=== PATIENT | female | born 1960 | race Caucasian/White ===

== ENCOUNTER 2017-03-24 10:22 | Emergency (ER) | payer OTHER ==
[~2017-03-24] VITALS: Ht 157.5 cm; Wt 85.0 kg
[2017-03-24 10:22] VITALS: Ht 157.5 cm; Wt 85.0 kg
[~2017-03-24 10:22] MED LIST: ALTEPLASE 100 MG INJ ONE; ALTEPLASE 50 MG ONE; AMLO-147 PO; ATROPINE 1 MG/10 ML SYRINGE ONE; CARV6.2579 PO; EPINEPHrine 0.1 MG/ML SYG ONE; METF500T4 PO; NA BICARBONATE 8.4% 50 ML SYG ONE
[2017-03-24] MEDS ORDERED: ASPIRIN 300 MG SUPP PR STA (10:38)
[2017-03-24] MEDS ORDERED: SOD CHLORIDE 0.9% 1,000 ML IV STA (10:38)
[2017-03-24] MEDS ORDERED: HEPARIN 1000 UNITS/ML 10 ML INJ IV STA (10:38)
[2017-03-24] MEDS ORDERED: METF1000 PO (10:41)
[2017-03-24] MEDS ORDERED: DOCU-159 PO (10:42)
[2017-03-24] MEDS ORDERED: ATOR20TA38 PO (10:42)
[2017-03-24] MEDS ORDERED: RANI300T PO (10:43)
[2017-03-24] MEDS ORDERED: METO-407 PO (10:43)
[2017-03-24] MEDS ORDERED: POTA20TA96 PO (10:43)
[2017-03-24] MEDS ORDERED: AMLO5TAB4 PO (10:44)
[2017-03-24] MEDS ORDERED: TRAM-40 PO (10:44)
[2017-03-24] MEDS ORDERED: FAMO20TA18 PO (10:45)
[2017-03-24] MEDS ORDERED: GLIP5TAB13 PO (10:45)
[2017-03-24] MEDS ORDERED: EPINEPHrine 0.1 MG/ML SYG ONE ×5 (10:58→14:44)
[2017-03-24] MEDS ORDERED: EPINEPHRINE 4 MG in D5W 250 ML IV ONE (11:00)
[2017-03-24 11:19] LABS: ABNORMAL IP MESSAGE 1; HEMATOCRIT 37.7 % (37.0-47.0); MEAN CORPUSCULAR HEMOGLOBIN 26.6 pg (29.0-33.0); MEAN CORPUSCULAR HGB CONC 29.2 g/dl (32.0-37.0); MEAN CORPUSCULAR VOLUME 91.1 fl (82.0-101.0); MEAN PLATELET VOLUME 10.2 fl (7.4-10.4); NUCLEATED RED BLOOD CELLS% 0.2 /100WBC (0.0-0.0); PLATELET COUNT 164 10^3/UL (140-415); RED BLOOD COUNT 4.14 10^6/ul (4.20-5.40); RED CELL DISTRIBUTION WIDTH 13.5 % (11.5-14.5); WHITE BLOOD COUNT 14.4 10^3/ul (4.8-10.8)
[2017-03-24 11:25] LABS: POSITIVE DIFF @See below
--- NOTE | 2017-03-24 11:31 | RADRPT ---
PROCEDURE: XR Chest. CLINICAL INDICATION: Dation TECHNIQUE: Anterior chest x-ray. COMPARISON: None. FINDINGS: Endotracheal tube terminates the right mainstem bronchus and should be withdrawn 4 cm for appropriat e position. Nasogastric tube is otherwise. Left-sided central venous catheter terminates at the cavoatrial junction. There is diffusely increased density throughout the left lung suggesting atelectasis. No pleural effusion identified. The heart size is large. Pacer wires overlie the left and right heart border. The cardiomediastinal silhouette is unremarkable. The soft tissues are normal. Osseous structures are unremarkable. IMPRESSION: 1. Right mainstem intubation. 2. Diffuse increased density throughout left lung, likely atelectasis secondary to the right mainst em intubation. Follow-up exam after repositioning is suggested. 3. Satisfactory position of left-sided central venous catheter and nasogastric tube. 4. Cardiomegaly. 5. Median sternotomy wires and central pacer wires from prior CABG. RPTAT: QQ .Jeremy Morales MD, MD Date Time Electronically viewed and signed by .Jeremy Morales MD, on 03/24/2017 11:31 .M/
[2017-03-24 11:37] LABS: INR 1.3; PROTIME 16.3 Sec (12.2-14.2); PT RATIO 1.3
[2017-03-24 11:40] LABS: ALBUMIN 3.5 g/dl (3.3-4.9); ALBUMIN/GLOBULIN RATIO 0.89; BILIRUBIN,INDIRECT 0.2 mg/dl (0-1.1); BILIRUBIN,TOTAL 0.2 mg/dl (0.2-1.3); CALCIUM 9.3 mg/dl (8.4-10.2); CREATININE 1.08 mg/dl (0.44-1.00); POTASSIUM 3.8 mmol/L (3.5-5.1); TOTAL PROTEIN 7.4 g/dl (6.1-8.1)
--- NOTE | 2017-03-24 11:40 | ERA ---
ER Documentation Chief Complaint Date/Time DATE: 03/24/17 TIME: 11:34 Chief Complaint cardiac arrest in field HPI Patient is a 56-year-old female brought into the ER for acute dyspnea. She was noted to be satting in the 80s in the field. En route to the hospital she became more dyspneic and went into respiratory arrest. Paramedics gave assisted ventilation with bag valve mask. The patient was noted to lose pulses and to be in ventricular fibrillation 2 minutes prior to ER arrival. She was given 1 dose of epinephrine and was defibrillated. CPR was performed. An oropharyngeal airway was placed. Patient had a CABG 2 weeks ago [place] a different city. History is limited due to patient's condition and lack of family members at the hospital. ROS All systems reviewed and are negative except as per history of present illness. Medications Home Meds Reported Medications Glipizide* (Glipizide*) 5 Mg Tablet, 5 MG PO BID, TAB 03/24/17 Famotidine* (Famotidine*) 20 Mg Tablet, 20 MG PO DAILY, #30 TAB 03/24/17 Amlodipine Besylate* (Norvasc*) 5 Mg Tablet, 5 MG PO BID, TAB 03/24/17 Tramadol Hcl* (Ultram*) 50 Mg Tablet, 50 MG PO Q6H Y for PAIN, TAB 03/24/17 Ranitidine Hcl* (Ranitidine Hcl*) 300 Mg Tablet, 300 MG PO HS, #30 TAB 03/24/17 Potassium Chloride* (Potassium Chloride*) 20 Meq Tablet.er, 20 MEQ PO DAILY, TAB.SA 03/24/17 Metoprolol Tartrate* (Lopressor*) 100 Mg Tablet, 100 MG PO BID, #60 TAB 03/24/17 Atorvastatin Calcium* (Atorvastatin Calcium*) 20 Mg Tablet, 20 MG PO QHS, #30 TAB 03/24/17 Docusate Sodium* (Docusate Sodium*) 100 Mg Capsule, 100 MG PO DAILY, #30 CAP 03/24/17 Metformin Hcl* (Metformin Hcl*) 1,000 Mg Tablet, 1000 MG PO WITH BREAKFAST DINNE , #30 TAB 03/24/17 Carvedilol* (Carvedilol*) 6.25 Mg Tablet, 6.25 MG PO DAILY 02/18/13 Discontinued Reported Medications Amlodipine Besylate* (Amlodipine Besylate*) 10 Mg Tablet, 10 MG PO DAILY 02/18/13 Metformin* (Glucophage*) 500 Mg Tab, 500 MG PO BID 02/18/13 Allergies Allergies: Coded Allergies: No Known Allergy (Unverified , 03/24/17) PMhx/Soc Past medical history: Coronary artery disease, diabetes mellitus, hyperlipidemia , CHF, hypertension Past surgical history: CABG Social history: Cannot obtain History of Surgery: Yes (recent CABG) Anesthesia Reaction: No Hx Neurological Disorder: No Hx Respiratory Disorders: No Hx Cardiac Disorders: Yes (HTN, HIGH CHOL) Hx Psychiatric Problems: No Hx Miscellaneous Medical Probl: No Hx Alcohol Use: No Hx Substance Use: No Hx Tobacco Use: No Smoking Status: Never smoker FmHx Cannot obtain Physical Exam Vitals Vital Signs Date Time Temp Pulse Resp B/P Pulse Ox O2 Delivery O2 Flow Rate FiO2 03/24/17 10:32 145/94 Mechanical Ventilator Physical Exam Const: Apneic, unresponsive Head: Atraumatic Eyes: Normal Conjunctiva, Pupils fixed and dilated ENT: Normal External Ears, Nose and Mouth. No evidence of oral trauma Neck: No mass, supple Resp: Clear to auscultation bilaterally Cardio: Tachycardia, irregularly irregular rhythm, no murmur. Dehiscence of midline sternotomy skin incision. No active bleeding. Abd: Soft, Nondistended Skin: No petechiae or rashes Ext: No cyanosis, or edema Neur: Unresponsive to noxious stimuli, No spontaneous movement. Result Diagram: 03/24/17 1037 03/24/17 1037 Results 24 hrs Laboratory Tests Test 03/24/17 10:37 White Blood Count 14.410^3/ul Red Blood Count 4.1410^6/ul Hemoglobin 11.0g/dl Hematocrit 37.7% Mean Corpuscular Volume 91.1fl Mean Corpuscular Hemoglobin 26.6pg Mean Corpuscular Hemoglobin Concent 29.2g/dl Red Cell Distribution Width 13.5% Platelet Count 72610^3/UL Mean Platelet Volume 10.2fl Neutrophils % % Segmented Neutrophils % (Manual) 36% Band Neutrophils % (Manual) 12% Lymphocytes % % Lymphocytes % (Manual) 23% Monocytes % % Monocytes % (Manual) 10% Eosinophils % % Eosinophils % (Manual) 16% Basophils % % Basophils % (Manual) 1% Metamyelocytes % (manual) 1% Myelocytes % (Manual) 1% Promyelocytes % (Manual) 1% Nucleated Red Blood Cells % 0.2/100WBC Neutrophils # 10^3/ul Neutrophils # (Manual) 5.410^3/ul Band Neutrophils # 1.710^3/ul Absolute Lymphocytes (Manual) 3.310^3/ul Lymphocytes # 10^3/ul Monocytes # 10^3/ul Absolute Monocytes (Manual) 1.410^3/ul Eosinophils # 10^3/ul Basophils # 10^3/ul Basophils # (Manual) 0.110^3/ul Metamyelocytes # 0.110^3/ul Myelocytes # 0.110^3/ul Promyelocytes # 0.110^3/ul Nucleated Red Blood Cells # 10^3/ul Platelet Estimate NORMAL Giant Platelets 1% Hypochromasia 1+ Poikilocytosis 2+ Anisocytosis 1+ Prothrombin Time 16.3Sec Prothrombin Time Ratio 1.3 INR International Normalized Ratio 1.30 Activated Partial Thromboplast Time 39.0Sec Sodium Level 144mmol/L Potassium Level 3.8mmol/L Chloride Level 106mmol/L Carbon Dioxide Level 15mmol/L Anion Gap 27 Blood Urea Nitrogen 13mg/dl Creatinine 1.08mg/dl Glucose Level 349mg/dl Calcium Level 9.3mg/dl Total Bilirubin 0.2mg/dl Direct Bilirubin 0.00mg/dl Indirect Bilirubin 0.2mg/dl Aspartate Amino Transf (AST/SGOT) 37IU/L Alanine Aminotransferase (ALT/SGPT) 47IU/L Alkaline Phosphatase 167IU/L Troponin I 0.017ng/ml Total Protein 7.4g/dl Albumin 3.5g/dl Globulin 3.90g/dl Albumin/Globulin Ratio 0.89 Current Medications Medications (Trade) Dose Ordered Sig/Justin Route PRN Reason Start Time Stop Time Status Last Admin Dose Admin Epinephrine/ Dextrose (EPINEPHrine/D5W) 250 ml @ 0 mls/hr ONCE ONCE IV 03/24/17 11:00 03/24/17 11:01 DC 03/24/17 11:04 Epinephrine 1 mg 1 mg STK-MED ONCE .ROUTE 03/24/17 10:58 03/24/17 10:59 DC Sodium Chloride (NS) 1,000 ml @ 1,000 mls/hr Q1H STAT IV 03/24/17 10:38 03/24/17 11:37 DC 03/24/17 10:38 Aspirin (Aspirin) 300 mg ONCE STAT MO 03/24/17 10:38 03/24/17 11:05 DC Heparin Sodium (Porcine) 6800 unit 6,800 unit ONCE STAT IV 03/24/17 10:38 03/24/17 11:05 DC 03/24/17 11:21 Norepinephrine 250 ml @ ud STK-MED ONCE .ROUTE 03/24/17 11:51 03/24/17 11:52 DC Amiodarone HCl 900 mg/Dextrose 500 ml @ 0 mls/hr Q0M IV 03/24/17 12:30 03/25/17 12:29 Amiodarone HCl/ Dextrose (Cordarone Iv/ D5W) 500 ml @ 0 mls/hr Q0M IV 03/24/17 12:30 03/24/17 12:30 DC Vancomycin HCl (Vanco Iv Per Pharmacy) VANCOMYCIN PER PHARMACY PER PROTOCOL XX 03/24/17 12:30 Epinephrine 1 mg 1 mg STK-MED ONCE .ROUTE 03/24/17 12:12 03/24/17 12:13 DC Vancomycin HCl/ Sodium Chloride (Vancocin/NS) 250 ml @ 83.333 mls/ hr ONCE ONCE IVPB 03/24/17 12:30 03/24/17 15:29 DC IV Flush 10 ml 10 ml STK-MED ONCE .ROUTE 03/24/17 12:53 03/24/17 12:54 DC 03/24/17 13:23 Sodium Chloride 100 ml @ ud STK-MED ONCE .ROUTE 03/24/17 12:53 03/24/17 12:54 DC 03/24/17 13:22 Iohexol (Omnipaque) 100 ml @ ud STK-MED ONCE .ROUTE 03/24/17 12:53 03/24/17 12:54 DC 03/24/17 13:22 Epinephrine 1 mg 1 mg STK-MED ONCE .ROUTE 03/24/17 12:58 03/24/17 12:59 DC Norepinephrine 250 ml @ 3.75 mls/hr TITRATE IV 03/24/17 12:00 03/24/17 23:00 Norepinephrine/ Dextrose (Levophed/D5W) 500 ml @ 0 mls/hr TITRATE IV 03/24/17 14:00 Epinephrine 1 mg STK-MED ONCE .ROUTE 03/24/17 14:44 03/24/17 14:45 DC Epinephrine 1 mg STK-MED ONCE .ROUTE 03/24/17 14:44 03/24/17 14:45 DC Procedures/MDM EKG read by me: Time 1029, rate 145 Rhythm: Atrial fibrillation with rapid ventricular response Richardson: Rightward axis Intervals: Normal ST-T waves: Nonspecific STT wave changes Ectopy: Occasional PVCs Q-waves: No Impression: A. fib with rapid ventricular response and nonspecific STT wave changes EKG read by me: Time 1126, rate 125 Rhythm: Atrial fibrillation with rapid ventricular response Richardson: Rightward axis Intervals: Bifascicular block ST-T waves: Nonspecific STT wave changes Ectopy: No Q-waves: No Impression: Atrial fibrillation with bifascicular block Endotracheal Intubation by me: Pre assessment performed. Pre-oxygenation performed with 100% oxygen RSI: Performed w/o complication or hypoxic events. No medications due to cardiac arrest Blade: MAC 4 ET Tube: 7.5 cm Depth: 22 cm at the lip Intubation confirmed by colorimetric CO2, equal breath sounds, quiet over the stomach. Chest X-ray 1V Interpreted by me: Right mainstem intubation. Atelectasis to left lung. No pneumothorax. ET tube was pulled back by 2.5 cm in repeat x-ray showed the ET tube at the tegan with reexpansion of the left lung. Subsequently, a CTPA showed recurrent right mainstem intubation, and the ET tube was again adjusted by 2.5 cm. Central Line Placement by me: Indication recurrent cardiac arrest and poor access Patient Unable to be consented due to being unconscious. No family available for consent, sterilely draped, full prep, gown, glove, mask, time out performed. Anesthesia: Not indicated due to patient comatose Location: Left subclavian Device: Multiple lumen Technique: Seldinger technique. Secured with suture. Results: Venous return from all ports with easy saline flush. No complications. Guide wire retrieved and disposed of. Chest X-ray 1V Interpreted by me: Central line at vena caval junction, Normal soft tissue, No evidence of pneumothorax. MDM: Patient is a 56-year-old female brought in by ambulance for acute dyspnea with associated syncope. She was noted to be hypoxic in the field and had a respiratory arrest followed by cardiac arrest 2 minutes prior to ER arrival. The patient was found to be in V. fib prior to ER arrival and received 1 defibrillation, as well as 1 dose of epinephrine prior to ER arrival. In the ER , the patient was found to be in rapid atrial fibrillation without pulses. CPR was performed, and return of spontaneous circulation without return of neurologic function was achieved after 3 rounds of CPR. Postarrest, the EKG showed nonspecific STT wave changes but no STEMI criteria. I spoke with Dr. Purdy at 1042, and he did not believe that the patient was a good candidate for emergent cardiac catheterization. He was aware that the patient had had a CABG performed 2 weeks ago. He came to the ER at 1135 and evaluated the patient. At that time the patient had had a total of 3 cardiac arrests. I spoke with him again at 1217, and he stated that he would not take the patient to catheterization. The patient was not stable enough for hypothermia protocol due to recurrent arrest. She was started on epinephrine and norepinephrine drips. She had recurrent PEA arrest often following dropping oxygen saturations. The patient had been given aspirin and heparin bolus empirically shortly after ER arrival due to differential diagnosis including pulmonary embolism and acute coronary syndrome. A bedside ultrasound performed by myself demonstrated no evidence of pericardial effusion. I considered the option of giving TPA, but given diagnostic uncertainty and the patient's recent surgery, I believed that the risk was not justified. The patient did have a dehisced sternal wound and was high risk for bleeding, including pericardial hemorrhage. The patient was stabilized long enough to obtain a CT pulmonary angiogram which demonstrated large bilateral pulmonary emboli. At this point, the patient was given a bolus of 50 mg IV TPA. CPR was continued for 45 minutes with intermittent return of spontaneous circulation. A second dose of 50 mg IV TPA was given due to recurrent arrest, and CPR was continued for an additional 30 minutes. I perform serial evaluations, extensive discussion with family, and was present for multiple rounds of CPR over the course of 4 hours. Ultimately, the patient was unable to regain pulses, and show no signs of neurologic function since ER arrival, and during episodes of return of circulation was increasingly hypotensive and bradycardic. An attempt was made to give a dose of sodium bicarb without success. The patient had also been given several liters of IV fluid to maximize preload. A total of at least 10 rounds of CPR for recurrent arrest were performed. The patient was ultimately pronounced , as further resuscitative efforts were deemed to be futile. Critical Care Time: 150 minutes Treatments/Evaluations: Close monitoring and treatment of unstable vital signs, cardiorespiratory, and neurologic status, while maintaining tight balance of fluid, respiratory, and cardiac interventions. This time includes discussing the case with the patient and the patient's family. This time does not include all procedures stated elsewhere in this record. This time also includes reviewing old records, labs and radiological studies. This time includes examining and re-examining the patient. Additionally, this time also includes arranging care with admitting and consulting physicians. Departure Diagnosis: Primary Impression: Cardiac arrest Additional Impression: Acute massive pulmonary embolism Condition: Critical () JASMIN CURRAN MD Mar 24, 2017 11:40
[2017-03-24] MEDS ORDERED: NORepinephrine 8MG/250 ML (PMX 250 ML ONE (11:51)
[2017-03-24 11:52] LABS: TROPONIN-I 0.017 ng/ml (0.00-0.12)
[2017-03-24] MEDS ORDERED: NORepinephrine 8MG/250 ML (PMX 250 ML IV SCH (12:00)
--- NOTE | 2017-03-24 12:19 | RADRPT ---
PROCEDURE: XR Chest. CLINICAL INDICATION: Right mainstem intubation. TECHNIQUE: PA and lateral chest x-ray. COMPARISON: 03/24/2017 at 1116 hours FINDINGS: There has been interval repositioning of endotracheal tube which terminates at the tegan. There is interval near complete resolution of diffuse opacity throughout the left hemithorax, sugges ting near complete resolution of left lung atelectasis. The right lung is clear. Left subclavian central venous catheter and nasogastric tube demonstrates stable and satisfactory po sition. There is no evidence of pleural effusion. No pneumothorax identified. Median sternotomy wires are unchanged from previous exam. The cardiomediastinal silhouette is unremarkable. The osseous structures are unremarkable. The soft tissues are within normal limits. IMPRESSION: 1. Interval repositioning of endotracheal tube which terminates at the tegan. 2. Interval near complete resolution of left lung atelectasis. 3. Stable and satisfactory position of nasogastric tube and left subclavian central venous catheter .. RPTAT: QQ .Jeremy Morales MD, MD Date Time Electronically viewed and signed by .Jeremy Morales MD, on 03/24/2017 12:19 .M/
[2017-03-24] MEDS ORDERED: AMIODARONE 900 MG in DEXTROSE 5% 482 ML IV SCH ×4 (12:30)
[2017-03-24] MEDS ORDERED: VANCOMYCIN IV PER PHARMACY XX SCH (12:30)
[2017-03-24] MEDS ORDERED: VANCOMYCIN 1.5 GM in SOD CHLORIDE 0.9% 250 ML IVPB ONE (12:30)
[2017-03-24 12:37] LABS: ANISOCYTOSIS 1+ (0-0); BASOPHILS % (M) 1 % (0-2); EOSINOPHILS % (M) 16 % (0-7); GIANT THROMBO% (M) 1 % (0-0); HYPOCHROMASIA 1+ (0-0); METAMYELOCYTES %M 1 % (0-0); MONOCYTES % (M) 10 % (0-11); MYELOCYTES % (M) 1 % (0-0); PLATELET ESTIMATE NORMAL; POIKILOCYTOSIS 2+ (0-0); PROMYELOCYTES #M 0.1 10^3/ul (0-0); PROMYELOCYTES % (M) 1 % (0-0)
[2017-03-24 12:45] VITALS: TEMP 97.9
[2017-03-24] MEDS ORDERED: SOD CHLORIDE 0.9% 100 ML ONE (12:53)
[2017-03-24] MEDS ORDERED: IOHEXOL 100 ML ONE (12:53)
--- NOTE | 2017-03-24 13:49 | RADRPT ---
PROCEDURE: CT angiogram of the chest with contrast. CLINICAL INDICATION: Cardiac arrest TECHNIQUE: CT scan of the chest with contrast was performed on a multidetector high-resolution CT scan. The patient was scanned following the uncomplicated intravenous administration of 100 ml Omni paque 350. Coronal and sagittal reformatted images were obtained from the axial source images. Stand bianca CT angiogram of the chest with contrast protocols were performed. 2-D and 3-D reformats were per formed. The total exam CTDI equals 49.29 mGy and the total exam DLP equals 691.5 mGy-cm. One or more of the following dose reduction techniques were used: - Automated exposure control. - Adjustment of the mA and/or kV according to patient size. Use of iterative reconstruction technique. COMPARISON: Chest 03/24/2017 FINDINGS: The patient is intubated with the tip of the endotracheal tube extending into the proximal right katie n bronchus and recommend retraction. Nasogastric tube extends into the stomach. There is a left cent ral venous catheter in place with the tip extending to the distal superior vena cava. Status post previous thoracotomy with sternotomy sutures in place. The heart is borderline enlarged without pericardial effusion Note that contrast is seen within the inferior vena cava and hepatic veins consistent with right he art failure. The pulmonary outflow tract and right main pulmonary artery are well enhanced without f illing defect. There is extensive filling defect within the mid to distal left main pulmonary artery and extending into the left lower lobe pulmonary arteries as well as into the proximal left upper i nterlobar are pulmonary artery. The intersegmental left lower lobe pulmonary arteries are not enhanc ed. The primary left upper lobe intersect pulmonary arteries are enhanced. The right upper lobar pul monary artery is enhanced without filling defects. There is a small filling defect involving the pro ximal right lower lobe are pulmonary artery consistent with embolism. The remainder of the right low er lobar pulmonary artery is unremarkable. However the right upper middle and lower lobe intersegmen issac pulmonary arteries demonstrate filling defects consistent with pulmonary emboli. The aorta is normal in size without aneurysm or dissection. The celiac axis and portions of the SMA visualized are unremarkable. The right and left subclavian arteries appear unremarkable. Brachial ce phalic artery and right and left proximal common carotid and vertebral arteries are unremarkable. There is moderate left pleural effusion. No evidence of right pleural effusion. Negative for pneumot horaces. There is bilateral central airspace disease with consolidations as well as ground-glass opa cities that extend above the right and left upper, right left lower and right middle lobes consisten t with atelectasis and pulmonary edema. There is no evidence of pulmonary nodules bilaterally. No ev idence of mediastinal hilar or axillary lymphadenopathy. Status post cholecystectomy. No evidence biliary ductal dilation. Images of the upper abdomen are ot herwise unremarkable. Degenerative changes of the thoracic spine without acute osseous findings are osteoblastic/osteolyti c lesions. IMPRESSION: 1. Extensive central pulmonary emboli much worse on the left as described above. There is right hea rt failure. Recommend clinical correlation and consultation with interventional radiology for furthe r evaluation. 2. No evidence of aortic dissection or aneurysm. 3. Bilateral central airspace disease and ground-glass opacities as above consistent with atelectas is and pulmonary edema. 4. Moderate right pleural effusion. 5. Endotracheal tube is in place with tip in proximal right main bronchus and recommend retraction. 6. No evidence of pneumothoraces. 7. Status post cholecystectomy. Addendum: Dr. Fong was telephoned this results on 03/24/2017 at 1342 hours. RPTAT:AAJJ Physician Dmitry Date Time Electronically viewed and signed by Physician Dmitry on 03/24/2017 13:49 BM/
[2017-03-24 14:00] VITALS: BP 92/67; PULSE 77; RESP 15
--- NOTE | 2017-03-24 17:35 | RADRPT ---
Echocardiogram Report Patient Name: SHRUTI MARTINES Gender: Female Date: 1960 Study Date: 24-Mar-2017 Traveling Auditor: Tunde [facility] Location: [facility] Ref. Physician: JASMIN CURRAN Quality: Technically Difficult Study Procedures: Transthoracic echocardiogram with complete 2D, M-Mode, and doppler examination. Indications: Cardiac Arrest. 2D/M Mode Doppler Measurement Value Normal Ranges Measurement Value Normal Ranges AV Peak Torres 0.9 m/sec AV Peak PG 3.0 mmHg LVOT Peak Torres 1.2 m/sec LVOT Peak PG 5.0 mmHg MV E Peak Torres 0.4 m/sec MV A Peak Torres 0.5 m/sec MV E/A 0.8 MV Decel Time 250 msec MV E/A 0.8 TR Peak Torres 3.0 m/sec TR Peak PG 37.0 mmHg RVSP 47.0 mmHg Findings Left Ventricle: Normal left ventricular cavity size. Moderate concentric left ventricular hypertrophy. Paradoxical septal motion consistent with post pericardectomy status. Ejection fraction is visually estimated at 30 %. Abnormal Diastolic Function. Multiple segmental wall motion abnormalities. Right Ventricle: Mild enlargement of right ventricle. Left Atrium: The left atrium is normal in size. Right Atrium: The right atrium is normal in size. Mitral Valve: Mild mitral leaflet calcification. Mild mitral annular calcification. Trace mitral regurgitation. Aortic Valve: No significant aortic stenosis or insufficiency. Aortic cusps appear mildly calcified. Tricuspid Valve: Normal appearance of the tricuspid valve. Estimated peak PA systolic pressure 47 mmHg. There is mild tricuspid regurgitation. Pulmonic Valve: Pulmonic valve not well visualized. There is trace pulmonic regurgitation. Pericardium: Small pericardial effusion. Aorta: Normal aortic root. IVC: Normal size and no respiratory collapse consistent with elevated right atrial pressure. Conclusions 1.Normal left ventricular cavity size. Moderate concentric left ventricular hypertrophy. Paradoxical septal motion consistent with post pericardectomy status. Ejection fraction is visually estimated at 30 %. Abnormal Diastolic Function. Multiple segmental wall motion abnormalities. 2.Mild enlargement of right ventricle. 3.Mild mitral leaflet calcification. Mild mitral annular calcification. Trace mitral regurgitation. 4.No significant aortic stenosis or insufficiency. Aortic cusps appear mildly calcified. 5.Normal appearance of the tricuspid valve. Estimated peak PA systolic pressure 47 mmHg. There is mild tricuspid regurgitation. 6.Small pericardial effusion. Electronically Signed By: Tejas Purdy 24-Mar-2017 17:34:01 -0700 Patient Name: SHRUTI MARTINES Study Date: 24-Mar-[id number]
--- NOTE | 2017-03-25 09:27 | CONS ---
DATE OF ADMISSION: 03/24/2017 DATE OF CONSULTATION: 03/24/2017 TYPE OF CONSULTATION: Emergency interventional cardiology. REASON FOR CONSULTATION: Cardiopulmonary arrest. CHIEF COMPLAINT: Cardiopulmonary arrest. HISTORY OF PRESENT ILLNESS: Thank you for this referral. History obtained from extensive review of the chart, discussion with multiple physicians and staff, discussion with the patient's son and tylor keys. The patient is an unfortunate 56-year-old female with history of coronary artery disease, st atus post LA 2 weeks ago, status post bypass surgery, apparently 2-vessel bypass at outside facility about 2 weeks ago, who was brought in after a cardiopulmonary arrest. Apparently she has acute dys pnea. Per ER note, she was noted to be desaturating in the 80s in the field, and became more dyspne ic and eventually respiratory arrest. Following that, she had to be shocked 1 time as well. She cain s been bagged, masked and had to be intubated. She had to be brought into the emergency room. In e mergency room, patient has so far multiple times reportedly coded. She has remained in paroxysmal a trial fibrillation and sinus rhythm, but she has been remaining hypotensive. She had a recent bypas s surgery according to the family, was not feeling well; however, at this point, the patient's chest wall is completely opened and the sutures inside are seen. PAST MEDICAL HISTORY: History of diabetes, hypertension, history of dyslipidemia, history of obesit y, coronary artery disease, status post LA. As above-mentioned there was a 2-vessel bypass surgery 2 weeks ago. ALLERGIES: NO REPORTED DRUG ALLERGIES. MEDICATIONS: As per medication reconciliation, personally reviewed. SOCIAL HISTORY: The patient has smoked in the past. FAMILY HISTORY: Unable to obtain. REVIEW OF SYSTEMS: As above only we could obtain. PHYSICAL EXAMINATION: VITAL SIGNS: Patient's tachycardia, heart rate of 110 at this point I saw her. Blood pressure 30 y ears. Status post intubation on the vent. CARDIOVASCULAR: Tachycardic, systolic murmur. HEENT: Eyes: Pupils are fixed and nonresponsive. PULMONARY: Anteriorly with diffuse rhonchi. CHEST: Status post sternotomy. She is open now and the tissue can be seen with evidence of sutures can be seen. GASTROINTESTINAL: Obese, soft. EXTREMITIES: With trivial edema. NEUROLOGIC: No response to verbal or painful stimuli. Currently, was unresponsive as well. DIAGNOSTIC DATA: EKG was personally reviewed and showed intermittent atrial fibrillation in sinus. LABORATORY: Sodium 144, potassium 3.8, BUN of 13, creatinine 1.08, glucose of 349, anion gap is 27. Troponin of 0.017. WBC of , hemoglobin 11, platelets of 164, there is 12% bands noted. Chest x-ray was personally reviewed. Left-sided diffuse opacification. Echocardiogram was reviewed which showed LV dysfunction, small pericardial effusion only. ABG has been ordered, not done yet. ASSESSMENT AND PLAN: 1. Acute cardiopulmonary arrest. 2. Arrhythmias with possible SVT as well as atrial fibrillation, paroxysmal. 3. Coronary artery disease, status post recent LA, status post recent bypass surgery. 4. Hypoxemia because of respiratory failure. 5. Severe encephalopathy, at this point completely unresponsive. 6. Shock, probably combination of cardiogenic and possibly septic. 7. Open wounds of the chest and most likely infected at this point. 8. Diabetes. 9. Hypertension. 10. Dyslipidemia. 11. Obesity. RECOMMENDATIONS: Prognosis is very poor at this point. The patient apparently has been taking her aspirin this morning. I have ordered vancomycin and amiodarone. She is on Epi drip as well as Levo phed is also added to her regimen. Idea of emergent cardiac catheterization was entertained; claude pool, it was discussed with the patient's son and daughter that at this point it would be futile and wale alonso is too unstable to be taken to the [facility]. I have discussed hypothermia with the ER physici an and ER staff. The patient to be started on hypothermia protocol if remains stable to do so. Pro gnosis is very poor. More than 55 minutes of critical care time was spent in management and treating this patient excludi ng any procedures. Dictated By: MADDIE DE LEÓN MD AV/LE Conf#: [id number] DID#: [id number] CC: JASMIN CURRAN MD;*End*
== END 2017-03-24 20:01 | disposition expired ==
LOC: E/R 10:22
DX: I46.9 Cardiac arrest, cause unspecified (principal); I26.99 Other pulmonary embolism without acute cor pulmonale; I25.10 Atherosclerotic heart disease of native coronary artery without angina pectoris; E11.9 Type 2 diabetes mellitus without complications; I10 Essential (primary) hypertension; R07.9 Chest pain, unspecified; Z79.84 Long term (current) use of oral hypoglycemic drugs; Z98.61 Coronary angioplasty status
CPT/HCPCS: 31500; 36556; 51702; 71010; 71020; 71275; 80053; 84484; 85025; 85610; 85730; 92950; 93005; 93306; 94002; 96374; 96375; J0171; J0282; J0461; J1644; J2997; J3370; J7030; J7050; J7060; J7070; Q9967; Z7502; Z7610